=== PATIENT | female | born 1955 | race Caucasian/White ===

== ENCOUNTER → 2019-12-30 08:17 | Outpatient (BNVA) | payer OTHER, SELFPAY | PROVIDERS: Visit Provider Physician Assistant Medical | DX: M25.562 Pain in left knee (principal); Z91.81 History of falling | CPT/HCPCS: 29125; 73110; 73564; 99203 ==

== ENCOUNTER → 2020-01-06 08:37 | Outpatient (BNVA) | payer OTHER, SELFPAY | PROVIDERS: Visit Provider Physician Assistant Medical | DX: M25.572 Pain in left ankle and joints of left foot (principal) | CPT/HCPCS: 73610; 73630; 99214 ==

== ENCOUNTER → 2020-01-09 08:35 | Outpatient (BNVA) | payer OTHER, SELFPAY | PROVIDERS: Visit Provider Physician Assistant Medical | DX: Z13.89 Encounter for screening for other disorder (principal) | CPT/HCPCS: 99213 ==

== ENCOUNTER → 2020-01-21 07:49 | Outpatient (BNVA) | payer OTHER, SELFPAY | PROVIDERS: Visit Provider Physician Assistant Medical | DX: Z13.89 Encounter for screening for other disorder (principal) | CPT/HCPCS: 99213 ==

== ENCOUNTER → 2020-01-30 08:07 | Outpatient (BNVA) | payer OTHER, SELFPAY | PROVIDERS: Visit Provider Physician Assistant Medical | DX: Z13.89 Encounter for screening for other disorder (principal) | CPT/HCPCS: 99213 ==

== ENCOUNTER → 2020-02-11 07:54 | Outpatient (BNVA) | payer OTHER, SELFPAY | PROVIDERS: Visit Provider Physician Assistant Medical | DX: Z13.89 Encounter for screening for other disorder (principal) | CPT/HCPCS: 99213 ==

== ENCOUNTER 2020-02-12 08:00 | Outpatient (RCR) | payer OTHER, SELFPAY ==
--- NOTE | 2020-02-05 09:29 | MHC.PT.EP ---
[facility] [place] [facility] [place] [facility] [place] [facility] [address] Drake Varghese [address] [phone] F: [phone] F: [phone] F: [phone] F: [phone] Physical Therapy Plan of Care Date of Evaluation: 02/05/20 Date of Surgery: NA Diagnosis: L calf strain, L knee contusion Assessment: 64 year old female referred for L calf strain and L knee contusion . Pt injured herself about a month back secondary to fall on her knee. She was works in [employer] [facility] [facility] [facility] [place] and tripped and fell in the front lobby. Pt continued to work her shift however a few hours later she had bruising in her calf and knee. Pt followed up with where XRAY was done. Examination reveals 7/10 pain with weight bearing activities, decreased knee ROM, ankle ROM WNL and painfree, TTP over medial knee joint line,no TTP in ankle or calf, decreased muscle strength, altered posture, balance and gait. Negative varus, valgus, anterior and posterior drawer and meniscal tear tests. She is independent with all BADLs but needs frequent seated rest breaks. Her son who lives with her helps her with IADLS. Pt has to negotiate 4 steps without handrails to get into the house and 10 steps to go the basement (handrails present). 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 She is a good candidate for PT based on age, goals, physical impairments and functional limitations. She would benefit from PT to decrease pain, improve ROM, increase muscle strength, postural correction and functional training. Frequency and Duration: The patient will be seen 2/week for 6 weeks Short Term Goals: 1. Pt will have 50% decrease in pain in 2 weeks. 2. Pt will be able to move knee through full range of motion without pain in 3 weeks. [facility] Goals: 1. Pt will be able to perform all ADLS without any pain in 4 weeks. 2. Pt will be able to perform all work activities without pain in 5 weeks. 3. Pt will return to OF in 6 weeks. Treatment Plan: Modalities to reduce pain, spasms and effusion. Manual therapy to restore motion and function. Therapeutic exercise to improve strength and flexibility. Neuromuscular re-education for posture and balance. Therapeutic activities to return to functional activities of daily living. Please sign and return to therapist. Thank you for your referral.
--- NOTE | 2020-03-09 16:33 | MHC.PT.DC ---
[facility] [place] [facility] [place] [facility] [place] [facility] [address] Drake Varghese [address] [phone] F: [phone] F: [phone] F: [phone] F: [phone] Physical Therapy Discharge Report Diagnosis: L calf strain, L knee contusion Date of Surgery: NA Date of Evaluation: 02/05/20 Date of Discharge: 03/09/20 Treatments to Date: 2 Cancellations to Date: 3 No Shows to Date: 3 Discharge Status: Visit Non-compliance Discharge Summary: Pt had 3 cancellation and 3 no shows after her second PT visit. Attempted to call patient however pt did not return calls. Pt therefore d/c from therapy. Electronically signed by: Shira Pemberton DPT Please sign and return to therapist. Thank you for your referral.
== END 2020-03-09 16:34 | disposition other institution (70) ==
LOC: HO.PT 08:00
PROVIDERS: Visit Provider Physician Assistant Medical
DX: S89.92XD Unspecified injury of left lower leg, subsequent encounter (principal); S80.02XD Contusion of left knee, subsequent encounter
CPT/HCPCS: 97110; 97140; 97161

== ENCOUNTER → 2020-02-25 11:13 | Outpatient (BNVA) | payer OTHER, SELFPAY | PROVIDERS: Visit Provider Physician Assistant Medical | DX: Z13.89 Encounter for screening for other disorder (principal) | CPT/HCPCS: 99213 ==

== ENCOUNTER → 2020-03-10 08:11 | Outpatient (BNVA) | payer OTHER, SELFPAY | PROVIDERS: Visit Provider Physician Assistant Medical | DX: Z13.89 Encounter for screening for other disorder (principal) | CPT/HCPCS: 99213 ==

== ENCOUNTER 2020-03-13 07:04 | Outpatient (REF) | payer OTHER, SELFPAY ==
--- NOTE | 2020-03-13 | MR_ITS ---
EXAMINATION: MR KNEE WITHOUT CONTRAST, LEFT CLINICAL INFORMATION: Left knee pain. Fall injury 12/29/2019. Experiencing symptoms post fall injury. COMPARISON: Left knee radiograph dated December 30, 2019. TECHNIQUE: MRI of the knee without contrast was performed using routine sequences on a high-field scanner. FINDINGS: MENISCI: Medial Meniscus: Undersurface degenerative changes and tearing of the posterior horn of the medial meniscus. Intermediate horizontally oriented signal intensity in the body of the meniscus (3:13-) which does not appear to reach the articular surface compatible with myxoid degenerative changes. Lateral Meniscus: Intact LIGAMENTS: Cruciate: Intact Collateral: Intact EXTENSOR MECHANISM: Intact ARTICULAR CARTILAGE/BONE: Nondisplaced, transversely oriented fracture of the posterior tibial epiphysis. Intra-articular extension of fracture line to the medial and lateral femoral tibial joint spaces posteriorly (3:8-). Marked bone marrow edema around the fracture site. Patellofemoral Compartment: Articular cartilage is preserved. Medial Compartment: Moderate thinning of the weightbearing femoral condyle articular cartilage medially with tiny underlying foci subchondral edema. Lateral Compartment: Articular cartilage is preserved. JOINT FLUID AND BURSAE: Small joint effusion. Small popliteal bursal effusion. MR/MR knee LT wo con IMPRESSION: Left knee: 1. Nondisplaced transversely oriented intra-articular fracture of the posterior tibial epiphysis. Articular fracture line extension to the medial and lateral femorotibial articulations posteriorly. Marked bone marrow edema about the fracture site. 2. 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 Undersurface degenerative changes in the posterior horn of the medial meniscus with likely superimposed low-grade tearing. 3. Intact cruciate and collateral ligaments. 4. Mild medial tibiofemoral compartment chondrosis. 5. Small joint effusion. Tiny Goldberg's cyst.
== END 2020-03-13 07:05 | disposition home or self-care (01) ==
LOC: HO.MRI 07:04
PROVIDERS: Visit Provider Internal Medicine
DX: M25.562 Pain in left knee (principal)
CPT/HCPCS: 73721

== ENCOUNTER → 2020-03-24 07:49 | Outpatient (BNVA) | payer OTHER, SELFPAY | PROVIDERS: Visit Provider Internal Medicine | DX: Z13.89 Encounter for screening for other disorder (principal) | CPT/HCPCS: 99214 ==

== ENCOUNTER 2020-03-26 09:27 | Outpatient (REF) | payer OTHER, SELFPAY ==
--- NOTE | 2020-03-26 09:30 | XR_ITS ---
EXAMINATION: XR ANKLE, LEFT CLINICAL INFORMATION: Pain in the left ankle and joints of the left foot COMPARISON: 01/06/2020 TECHNIQUE: AP, lateral, and mortise views of the left ankle. FINDINGS: No fracture or dislocation. The ankle mortise is congruent. No ankle joint effusion. There is moderate hypertrophic spurring of the plantar aponeurosis and Achilles insertion to the calcaneus. The soft tissues are unremarkable. XR/XR ankle LT min 3V IMPRESSION: Prominent heel spurs which are unchanged from prior. Otherwise unremarkable appearance of the left ankle.
== END 2020-03-26 09:28 | disposition home or self-care (01) ==
LOC: HO.HOSX 09:27
PROVIDERS: Visit Provider Physician Assistant
DX: S82.142A Displaced bicondylar fracture of left tibia, initial encounter for closed fracture (principal)
CPT/HCPCS: 73610; 99202

== ENCOUNTER 2020-05-07 07:20 | Outpatient (REF) | payer OTHER, SELFPAY ==
--- NOTE | ~2020-05-07 | XR_ITS ---
EXAMINATION: XR KNEE, LEFT CLINICAL INFORMATION: Displaced bicondylar fracture of the left tibia. COMPARISON: Knee MRI 03/13/2020 TECHNIQUE: AP standing view of both knees. Lateral and sunrise views of the left knee. FINDINGS: Left knee: There is redemonstration of the lucency along the lateral aspect of the tibial spine, consistent with the previously seen fracture. Alignment remains anatomic. Mild medial compartment joint space narrowing. Small tricompartmental marginal osteophytes. Small joint effusion. Right knee: Single frontal view shows no fracture or subluxation. Compartmental joint spaces are maintained. XR/XR knee LT 3V IMPRESSION: Nondisplaced fracture of the left lateral tibial plateau. Fracture line is still visible. Mild degenerative changes.
== END 2020-05-07 07:21 | disposition home or self-care (01) ==
LOC: HO.HOSX 07:20
PROVIDERS: Visit Provider Physician Assistant
DX: S82.142D Displaced bicondylar fracture of left tibia, subsequent encounter for closed fracture with routine healing (principal)
CPT/HCPCS: 73562; 99212

== ENCOUNTER → 2020-06-04 07:18 | Outpatient (BNVA) | payer OTHER, SELFPAY | PROVIDERS: Visit Provider Internal Medicine | DX: Z13.89 Encounter for screening for other disorder (principal) | CPT/HCPCS: 99211 ==

== ENCOUNTER 2022-09-26 12:33 | Outpatient (AMB) | payer MEDICARE, SELFPAY ==
[2022-09-26 12:36] VITALS: BP 138/66; PULSE 81; RESP 13; TEMP 36.3; O2SAT 94; BMI 27.9
--- NOTE | 2022-09-26 12:36 | A.OFFPC_ITS ---
Vital Signs 09/26/22 12:36 Height 5 ft 4 in Weight 162 lb 8 oz BMI 27.9 BP 138/66 Blood Pressure Location Lt brachial Position Sitting Respiration 13 Pulse 81 Pulse Source Pulse Oximeter Temp 97.4 F Temp Source Temporal Artery Scan Pulse Oximetry (%) 94 Oxygen Delivery Method Room Air Intake Visit Reasons: HTN, DM2, CHF Intake Note: Patient states that shes has been alo6 of pain coming from back and side. Patient states that she has been constipated and has tried having a bowel movement and has been unsuccessful. Patient would like something for her body pain. Senior Compensation Consultant Required: No Accompanied by: Son Allergies No Known Allergies [No Known Allergies*] Allergy (Verified 09/26/22 12:50) Medication List - Last Reconciled 09/26/22 by Dot Hodges CNP acetaminophen (Tylenol Extra Strength) 500 mg PO Q6H PRN aspirin 81 mg PO DAILY atorvastatin 80 mg PO DAILY bumetanide 1 mg PO BID carvedilol 6.25 mg PO BID clopidogrel 75 mg PO DAILY dapagliflozin propanediol (Farxiga) 10 mg PO DAILY ferrous sulfate 325 mg PO Q OTHER DAY furosemide 20 mg PO BID insulin glargine (Lantus U-100 Insulin) 10 units subcut QPM metformin 500 mg PO DAILY sacubitril-valsartan 24-26 mg (Entresto) 1 tab PO BID spironolactone 25 mg PO DAILY torsemide 20 mg PO BID Tobacco use date assessed: 07/26/22 Fall risk assessment: 1 Fall in past year Last assessed Fall Risk: 09/26/22 Dental Screening Dental Screen Date: 09/26/22 Did you have a dental visit in the last 12 months?: No Did you have a dental problem in the last 6 months where you did not have access to dental care?: No Was dental information given to patient?: Yes HPI HPI Comments History of Present Illness Details 66-year-old female presents for hypertension, diabetes, and CHF follow- up. She notes she has been taking her medications as prescribed. She reports left ribcage and low pain especially while lying down. She attributes her symptoms to pressure from prolonged lying. She reports poor sleep due to pain and states that the mattress she sleeps on is uncomfortable. She is planning on replacing her mattress. She also reports constipation. Her LBM was 4 days ago and that is the longest she went without a BM. 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 Everette Smalls, Jaleesa Pedersen, Travon Eason and colleagues, with an educational maria a from [employer]. Review of Systems Const Details: Const Denies chills, Denies fatigue, Denies fever(s), Denies headache(s) and Denies weakness ENT Denies dizziness and Denies headache(s) Card Denies chest pain, Denies lightheadedness, Denies dyspnea and Denies other (Palpitations) Resp Denies cough, Denies dyspnea, Denies wheezing and Denies other ( shortness of breath) GI Reports constipation, Denies abdominal pain, Denies melena, Denies hematochezia, Denies change in bowel habits, Denies dyspepsia and Denies nausea Denies hematuria and Denies dysuria Musc Denies abnormal gait, Denies myalgias, Denies arthralgias, Denies numbness and Denies tingling Skin/Breast Denies rash, Denies unusual bruising and Denies wounds Neuro Denies abnormal gait, Denies dizziness, Denies headache(s), Denies memory loss, Denies numbness, Denies Sensory deficit (Neuro), Denies tingling and Denies weak ness Psych Denies anxiety and Denies depression Endo Denies fatigue Aller/Immun Denies wheezing Physical exam (Primary Care) Vital Signs: Last Vital Signs Temp 97.4 F 09/26/22 12:36 Pulse 81 09/26/22 12:36 Resp 13 09/26/22 12:36 BP 138/66 09/26/22 12:36 Pulse Ox 94 09/26/22 12:36 Oxygen Delivery Method Room Air 09/26/22 12:36 BMI result Body Mass Index 27.9 Tobacco/Smoking Status: Tobacco use Status Tobacco use date assessed 07/26/22 09/26/22 12:53 Patient Tobacco Use Status Never used Tobacco 09/26/22 12:53 e-Cigarette/Vaping Use Never Used 09/26/22 12:53 Thrive Assessment: Date of Thrive Assessment Date Thrive assessed 07/26/22 09/26/22 12:53 Const Other: General: no acute distress and well developed Nutritional Appearance: well nourished Orientation/consciousness: patient oriented x3 HENMT Head: Yes normocephalic and Yes atraumatic Eyes General: appearance normal, both eyes and all related structures Pupils: Equal, round and reactive pupils present EOM: EOMs intact bilaterally Resp Effort & Inspection: normal respiratory effort Auscultation: clear to auscultation bilaterally Cardio Rate: regular rate Rhythm: regular rhythm Heart sounds: S1 normal heart sound present, S2 normal heart sound present, no gallops, no murmurs and no rubs GI Palpation (GI): No Abdominal aortic bruit present, Soft to palpation, nontender, No hepatosplenomegaly present and No Rebound tenderness present Auscultation: normal bowel sounds General: Yes no CVA tenderness Back/Spine/Pelvis Back: no CVA tenderness Cervical Spine: cervical ROM normal and No Cervical spine tenderness Thoracic/Lumbar Spine: thoraco-lumbar ROM normal, No pain with thoraco-lumbar ROM, No thoracic spinal tenderness and No lumbar spinal tenderness Extrem General: Yes normal to inspection, No edema and No calf tenderness Skin General: warm and dry. Normal skin color. Normal skin turgor Lesions: no lesions Rashes: no rashes Trauma: no lacerations or abrasions Wounds: no wounds Nails: normal Neuro General: patient oriented x3, gait normal and no focal neuro deficit Cranial nerves: Yes Equal, round and reactive pupils present Cognition (Neuro): normal cognition Gait exam (Neuro): Normal gait present Sensory Exam: No Sensory deficit (Neuro) Psych Affect: normal affect Assessment and Plan Assessment & Plan (1) Hypertension: Code(s): I10 - Essential (primary) hypertension Plan: Blood pressure is 138/66 today, above goal of less than 130/80 Continue with current treatment regimen Low-sodium diet encouraged Follow-up in 2 months or return sooner with concerns or symptoms Verbalized understanding and agreed with treatment plan. (2) Type 2 diabetes mellitus: Code(s): E11.9 - Type 2 diabetes mellitus without complications Plan: At the last visit in June, she noted that her last A1c was 11% Awaiting health record from [facility] Will repeat A1c next month Continue with current treatment regimen ADA diet and routine exercise encouraged Follow-up in 1 month or return sooner with concerns or symptoms Verbalized understanding and agreed with treatment plan. (3) CHF (congestive heart failure): Code(s): I50.9 - Heart failure, unspecified Plan: No acute symptoms Followed by [facility] cardiology (4) Back pain: Code(s): M54.9 - Dorsalgia, unspecified Plan: She reports left ribcage and low pain especially while lying down. She attributes her symptoms to pressure from prolonged lying. She reports poor sleep due to pain and states that the mattress she sleeps on is uncomfortable. She is planning on replacing her mattress. Encouraged to get a new mattress with better support Take Tylenol as prescribed for pain May take melatonin for sleep Warm/cool compresses encouraged Follow-up with worsening or new symptoms Verbalized understanding and agreed with treatment plan. (5) Constipation: Code(s): K59.00 - Constipation, unspecified Plan: She also reports constipation. LBM was 4 days ago and that is the longest she went without a BM. Likely due to for ferrous sulfate Continue to takes ferrous sulfate as prescribed Colace ordered. Take as prescribed Adequate hydration encouraged Follow-up with worsening or new symptoms Verbalized understanding and agreed with treatment plan. Orders: Orders Complete Blood Count Auto Diff Today E11.9 - Type 2 diabetes mellitus without complications, I10 - Essential (primary) hypertension, I50.9 - Heart failure, unspecified, K59.00 - Constipation, unspecified Comprehensive [place]. Panel Fast Today E11.9 - Type 2 diabetes mellitus without complications, I10 - Essential (primary) hypertension, I50.9 - Heart failure, unspecified, K59.00 - Constipation, unspecified Lipid Panel Today E11.9 - Type 2 diabetes mellitus without complications, I10 - Essential (primary) hypertension, I50.9 - Heart failure, unspecified, K59.00 - Constipation, unspecified TSH reflex Free T4 Today E11.9 - Type 2 diabetes mellitus without complications, I10 - Essential (primary) hypertension, I50.9 - Heart failure, unspecified UA CC w/rflx Micro + Cult Today E11.9 - Type 2 diabetes mellitus without complications, I10 - Essential (primary) hypertension, I50.9 - Heart failure, unspecified Microalbumin, Random (w Creat) Today E11.9 - Type 2 diabetes mellitus without complications Medications: New docusate sodium (Colace) 100 mg PO DAILY 30 days 30 caps 3RF Coding Level of Care Code Est Pt Level 4 (03774) Diagnoses Hypertension I10 Type 2 diabetes mellitus E11.9 CHF (congestive heart failure) I50.9 Back pain M54.9 Constipation K59.00 Time Spent (min) 35
== END 2022-09-26 13:20 | disposition home or self-care (01) ==
PROVIDERS: PCP Nurse Practitioner Family; Visit Provider Nurse Practitioner Family
DX: I11.0 Hypertensive heart disease with heart failure (principal); E11.9 Type 2 diabetes mellitus without complications; I50.9 Heart failure, unspecified; M54.9 Dorsalgia, unspecified; K59.00 Constipation, unspecified
CPT/HCPCS: 99214

== ENCOUNTER 2023-01-25 13:32 | Outpatient (AMB) | payer MEDICARE, SELFPAY ==
[2023-01-25 13:49] VITALS: BP 144/90; PULSE 79; RESP 13; TEMP 36.3; O2SAT 99; BMI 29.7
--- NOTE | 2023-01-25 13:54 | MHC.OFFWIV ---
Intake Vital Signs 01/25/23 13:49 Height 5 ft 4 in Weight 173 lb 2 oz BMI 29.7 BP 144/90 H Blood Pressure Location Lt brachial Position Sitting Respiration 13 Pulse 79 Pulse Source Pulse Oximeter Temp 97.4 F Temp Source Temporal Artery Scan Pulse Oximetry (%) 99 Oxygen Delivery Method Room Air Intake Visit Reasons: abd pain,vomiting Intake Note: Patient states that this has been happening on and off. Patient has history of gastritis and having gallstones. Patient states that shes having pain in gallbladder area and the pain is constant and causing her vomiting. Patient Tobacco Use Status: Never used Tobacco Marble Cutter Required: No Accompanied by: Son Allergies No Known Allergies [No Known Allergies*] Allergy (Verified 01/25/23 14:10) Do you need a note to return to daycare/school/sports/work: No HPI HPI Comments History of Present Illness Details Here today c/o 4 days of vomiting about 3 times per day last time was this morning trying to eat a bland diet pain in RUQ; radiates into Right scapula Denies fever, sick contacts Had gallstones over the summer Son tells me the sx today wax and wane since Spring Denies being active w GI doctor Wt is higher than usual Denies blood in emesis normal urination blood sugars are labile as admitted 2 weeks ago for fluids . i do not have these records. sounds like cardiac cause. 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 exam in seating position in chair as she is too frail to get onto exam today. No CVAT bilat Assessment & Plan Assessment & Plan (1) Nausea vomiting and diarrhea: Code(s): R11.2 - Nausea with vomiting, unspecified; R19.7 - Diarrhea, unspecified (2) Abdominal pain, RUQ: Code(s): R10.11 - Right upper quadrant pain Plan will check labs and order US. Diet as tolerated. Advised to f/u with PCP office for results. She is quite frail and may require higher level of care. explained this to her and son today. do not wish to go to hospital at this time. use [facility] [facility] if her sx or condition worsen that she should go to the hospital also rec she get GI referral for this chronic GI issue Orders: Orders Basic Metabolic Panel Today R10.11 - Right upper quadrant pain, R11.2 - Nausea with vomiting, unspecified, R19.7 - Diarrhea, unspecified Liver Panel Today R10.11 - Right upper quadrant pain, R11.2 - Nausea with vomiting, unspecified, R19.7 - Diarrhea, unspecified Amylase Today R10.11 - Right upper quadrant pain, R11.2 - Nausea with vomiting, unspecified, R19.7 - Diarrhea, unspecified Lipase Today R10.11 - Right upper quadrant pain, R11.2 - Nausea with vomiting, unspecified, R19.7 - Diarrhea, unspecified UA and rflx microscopic Today R10.11 - Right upper quadrant pain, R11.2 - Nausea with vomiting, unspecified, R19.7 - Diarrhea, unspecified US abdomen limited Today R10.11 - Right upper quadrant pain, R11.2 - Nausea with vomiting, unspecified, R19.7 - Diarrhea, unspecified Medications: New ondansetron HCl 4 mg PO Q8H 3 days PRN 15 tabs 0RF nausea and vomiting Coding Level of Care Code Est Pt Level 5 (96417) Diagnoses Nausea vomiting and diarrhea R11.2; R19.7 Abdominal pain, RUQ R10.11 Time Spent (min) 65
== END 2023-01-25 14:34 | disposition home or self-care (01) ==
PROVIDERS: PCP Nurse Practitioner Family; Visit Provider Nurse Practitioner Family
DX: R11.2 Nausea with vomiting, unspecified (principal); R19.7 Diarrhea, unspecified; R10.11 Right upper quadrant pain
CPT/HCPCS: 99215